=== PATIENT | male | born 1970 | race Caucasian/White ===

== ENCOUNTER 2017-04-14 08:36 | Emergency (ER) | payer BC ==
[2017-04-14 09:14] VITALS: O2SAT 93
[2017-04-14] MEDS ORDERED: Phenergan 25 MG INJ IM ONE (09:49)
[2017-04-14] MEDS ORDERED: TORAdol 30 mg Injection IM ONE (09:49)
--- NOTE | 2017-04-14 09:49 | ERPHSYRPT ---
- History of Present Illness Time Seen by Provider: 04/14/17 09:38 Source: patient Patient Subjective Stated Complaint: pt states he has had a frontal headache for the past 2 days off and on. denies any fever at home. states he is nauseated. Triage Nursing Assessment: pt pink, warm, dry. pt ambulated into ER without difficulty. pupils perrl. Physician History: The patient is a 46-year-old male who complains of a headache that began began 2 days ago after taking a dietary supplement designed to help him lose weight. The headache resolved yesterday. The headache came back again this morning. He denies any numbness or tingling. Light bothers him. It's a frontal headache. He has vomited after eating breakfast today. His past medical history is unremarkable. Timing/Duration: day(s) (2), intermittent, sudden, worse Quality: sharpness Head Pain Location: frontal Severity of Pain-Max: severe Severity of Pain-Current: severe Recent Head Trauma: no recent headache/trauma Modifying Factors: Improves With: medication Associated Symptoms: nausea/vomiting, sensitive to light Previous symptoms: no prior history Allergies/Adverse Reactions: No Known Drug Allergies Allergy (Unverified 04/14/17 09:14) Hx Tetanus, Diphtheria Vaccination/Date Given: Yes (unknown) Hx Influenza Vaccination/Date Given: Yes Hx Pneumococcal Vaccination/Date Given: No Immunizations Up to Date: Yes - Review of Systems Constitutional: No Fever, No Chills Eyes: Photophobia Ears, Nose, & Throat: No Symptoms Respiratory: No Cough, No Dyspnea Cardiac: No Chest Pain, No Edema, No Syncope Abdominal/Gastrointestinal: Vomiting Genitourinary Symptoms: No Dysuria Musculoskeletal: No Back Pain, No Neck Pain Skin: No Rash Neurological: Headache Psychological: No Symptoms Endocrine: No Symptoms Hematologic/Lymphatic: No Symptoms Immunological/Allergic: No Symptoms All Other Systems: Reviewed and Negative - Past Medical History Pertinent Past Medical History: Yes Neurological History: No Pertinent History ENT History: No Pertinent History Cardiac History: No Pertinent History Respiratory History: No Pertinent History Endocrine Medical History: No Pertinent History Musculoskeletal History: No Pertinent History GI Medical History: No Pertinent History History: Other Psycho-Social History: No Pertinent History Male Reproductive Disorders: No Pertinent History Other Medical History: kidney stones - Past Surgical History Past Surgical History: No Neuro Surgical History: No Pertinent History Cardiac: No Pertinent History Respiratory: No Pertinent History Gastrointestinal: No Pertinent History Genitourinary: No Pertinent History Musculoskeletal: No Pertinent History Male Surgical History: No Pertinent History Other Surgical History: TONSILLECTOMY - Social History Smoking Status: Never smoker Exposure to second hand smoke: No Drug Use: none Patient Lives Alone: No - Nursing Vital Signs Nursing Vital Signs: Initial Vital Signs Temperature 97.7 F Temperature Source Oral Pulse Rate 62 Respiratory Rate 18 Blood Pressure [Right Arm] 119/65 Pain Intensity 7 - Physical Exam General Appearance: moderate distress Eye Exam: PERRL/EOMI Ears, Nose, Throat Exam: normal ENT inspection, moist mucous membranes Neck Exam: normal inspection, supple, full range of motion, No meningismus Respiratory Exam: normal breath sounds, lungs clear Cardiovascular Exam: regular rate/rhythm, normal heart sounds Gastrointestinal/Abdominal Exam: soft, No tenderness, No distention Back Exam: normal inspection, normal range of motion Extremity Exam: normal inspection Mental Status Exam: alert, 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, 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 Exam: normal speech, PERRL, No facial droop Coordination/Gait Exam: normal cerebellar function Motor/Sensory Exam: no motor deficit, no sensory deficit Skin Exam: normal color, warm, dry, No rash SpO2 Interpretation: normal SpO2: 93 Oxygen Delivery: Room Air - Progress Progress: improved Counseled pt/family regarding: diagnosis - Departure Time of Disposition: 09:54 Departure Disposition: Home Clinical Impression: Migraine headache without aura Condition: Stable Critical Care Time: No Instructions: Headache Additional Instructions: I think you have a migraine headache that was triggered by the [id number] diet supplement you recently started taking. You were given a Toradol 60 mg injection and a Phenergan 50 mg injection in the ER. Please a home and rest. Discontinue the use of the dietary supplement. Follow-up tomorrow if the headache has not resolved completely.
[2017-04-14] MEDS ORDERED: TORAdol 30 mg Injection ONE (10:03)
[2017-04-14] MEDS ORDERED: Phenergan 25 MG INJ ONE (10:03)
[2017-04-14 10:38] VITALS: BP 106/66; PULSE 66
== END 2017-04-14 10:38 | disposition home or self-care (01) ==
LOC: ED 08:36
DX: G43.109 Migraine with aura, not intractable, without status migrainosus (principal)
CPT/HCPCS: 96372; 99284; J1885; J2550

== ENCOUNTER 2017-04-16 08:14 | Emergency (ER) | payer BC ==
--- NOTE | 2017-04-16 08:44 | ERPHSYRPT ---
- History of Present Illness Time Seen by Provider: 04/16/17 08:39 Source: patient, family Exam Limitations: no limitations Patient Subjective Stated Complaint: PT REPORTS HEADACHE BEGINNING WEDNESDAY- REPORTS VOMITING BEGINNING WEDNESDAY BUT NONE THIS AM-REPORTS DIZZINESS WITH MOVEMENT-PT PLACED ON LEVOQUIN WEDNESDAY FOR SINUS INFECTION-DENIES NUMBNESS OR TINGLING Triage Nursing Assessment: PT PALE WARM ET [id number] ALL QUESTIONS APPROPRIATELY-PUPILS REACTIVE-PT MOVING ALL EXTREMITIES WITH EASE-ABD SOFT ET NONTENDER TO PALP Physician History: The patient is a 46-year-old male with his mother complaining of a severe headache and vomiting for 3 days. I saw the patient 2 days ago for the same condition and gave him Phenergan and Toradol. He did not improve at that time. He later went to [facility] and was given levofloxacin for possible sinus infection. He now states he is getting worse. He is a generalized headache and has been vomiting. His vision is now blurry. The condition is originally began 4 days ago when he started taking an [id number] weight loss medicine that was produced from a vegetable rind. He took the medicine twice first day and twice secondary and developed a headache. He then came in the next day to see me for the headache. I I diagnosed him with a migraine headache that was triggered by the weight loss pill. His past medical history is significant for occasional headaches. His family has a history of DVTs. He denies any leg pain or leg swelling. Timing/Duration: day(s) Quality: sharpness Head Pain Location: global Severity of Pain-Max: severe Severity of Pain-Current: severe Recent Head Trauma: occasional headaches Modifying Factors: Improves With: exposure to light Associated Symptoms: nausea/vomiting, sensitive to light, visual disturbance Previous symptoms: no prior history Allergies/Adverse Reactions: No Known Drug Allergies Allergy (Verified 04/16/17 08:23) Home Medications: No Home Meds [facility] 04/16/17 [History] Hx Tetanus, Diphtheria Vaccination/Date Given: No Hx Influenza Vaccination/Date Given: Yes Hx Pneumococcal Vaccination/Date Given: No Immunizations Up to Date: Yes - Review of Systems Constitutional: No Fever, No Chills Eyes: Vision Changes Ears, Nose, & Throat: No Symptoms Respiratory: No Cough, No Dyspnea Cardiac: No Chest Pain, No Edema, No Syncope Abdominal/Gastrointestinal: Nausea, Vomiting, No Abdominal Pain, No Diarrhea Genitourinary Symptoms: No Dysuria Musculoskeletal: No Back Pain, No Neck Pain Skin: No Rash Neurological: Headache Psychological: No Symptoms Endocrine: No Symptoms Hematologic/Lymphatic: No Symptoms Immunological/Allergic: No Symptoms All Other Systems: Reviewed and Negative - Past Medical History Pertinent Past Medical History: No Neurological History: No Pertinent History ENT History: No Pertinent History Cardiac History: No Pertinent History Respiratory History: No Pertinent History Endocrine Medical History: No Pertinent History Musculoskeletal History: No Pertinent History GI Medical History: No Pertinent History History: Other Psycho-Social History: No Pertinent History Male Reproductive Disorders: No Pertinent History Other Medical History: kidney stones - Past Surgical History Past Surgical History: No Neuro Surgical History: No Pertinent History Cardiac: No Pertinent History Respiratory: No Pertinent History Gastrointestinal: No Pertinent History Genitourinary: No Pertinent History Musculoskeletal: No Pertinent History Male Surgical History: No Pertinent History Other Surgical History: TONSILLECTOMY - Social History Smoking Status: Never smoker Exposure to second hand smoke: No Drug Use: none Patient Lives Alone: No - Nursing Vital Signs Nursing Vital Signs: Initial Vital Signs Temperature 97.0 F Temperature Source Oral Pulse Rate 65 Respiratory Rate 16 Blood Pressure [Right Arm] 111/56 Pain Intensity 9 - Physical Exam General Appearance: moderate distress Eye Exam: PERRL/EOMI Ears, Nose, Throat Exam: normal ENT inspection, moist mucous membranes, other ( vision is 20/30 bilaterally) Neck Exam: normal inspection, supple, full range of motion, No meningismus Respiratory Exam: normal breath sounds, lungs clear Cardiovascular Exam: regular rate/rhythm, normal heart sounds Gastrointestinal/Abdominal Exam: soft, No tenderness, No distention Back Exam: normal inspection, normal range of motion Extremity Exam: normal inspection Mental 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, 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, 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: normal speech, PERRL, tongue midline, No abnormal speech, No facial droop, No facial paresthesias Coordination/Gait Exam: normal cerebellar function Motor/Sensory Exam: no motor deficit, no sensory deficit Skin Exam: normal color, warm, dry, No rash SpO2 Interpretation: normal SpO2: 97 Oxygen Delivery: Room Air Ordered Tests: Active Orders 24 hr Category Date Time Status Silo Erector STAT Care 04/16/17 09:26 Active IV Insertion STAT Care 04/16/17 08:45 Active Orthostatic Vital Signs STAT Care 04/16/17 08:55 Active Oxygen-ED Only NASAL CANNULA 2 lpm Care 04/16/17 09:26 Active Visual Acuity STAT Care 04/16/17 08:55 Active HEAD WITHOUT CONTRAST [CT] Stat Exams 04/16/17 08:47 Completed CBC W DIFF Stat Lab 04/16/17 08:55 Completed CMP Stat Lab 04/16/17 08:55 Completed D-DIMER QUANTITATION Stat Lab 04/16/17 09:00 Completed Free T4 Stat Lab 04/16/17 09:39 Completed PROTIME WITH INR Stat Lab 04/16/17 08:55 Completed TROPONIN Stat Lab 04/16/17 09:00 Completed TSH [TSH, 3RD Generation] Stat Lab 04/16/17 09:39 Completed Medication Summary Discontinued Medications Generic Name Dose Route Start Last Admin Trade Name Freq PRN Reason Stop Dose Admin Sodium Chloride 1,000 mls @ 999 mls/hr 04/16/17 08:45 04/16/17 09:09 Sodium Chloride 0.9% 1000 Ml IV 04/16/17 09:45 999 mls/hr .Q1H1M STA Administration Sodium Chloride Confirm 04/16/17 09:02 Sodium Chloride 0.9% 1000 Ml Administered 04/16/17 09:03 Dose 1,000 mls @ ud .ROUTE .STK-MED ONE Ketorolac Tromethamine 30 mg 04/16/17 08:45 04/16/17 09:10 Toradol 30 Mg Injection IV 04/16/17 08:46 30 mg STAT ONE Administration Ketorolac Tromethamine Confirm 04/16/17 09:02 Toradol 30 Mg Injection Administered 04/16/17 09:03 Dose 30 mg .ROUTE .STK-MED ONE Ondansetron HCl 4 mg 04/16/17 08:45 04/16/17 09:10 Zofran 4 Mg/2 Ml Vial IV 04/16/17 08:46 4 mg STAT ONE Administration Ondansetron HCl Confirm 04/16/17 09:02 Zofran 4 Mg/2 Ml Vial Administered 04/16/17 09:03 Dose 4 mg .ROUTE .STK-MED ONE Potassium Chloride 40 meq 04/16/17 09:40 04/16/17 10:00 Klor Con 10 Meq PO 04/16/17 09:41 40 meq STAT ONE Administration Potassium Chloride Confirm 04/16/17 09:56 Klor Con 10 Meq Administered 04/16/17 09:57 Dose 40 meq PO .STK-MED ONE Lab/Rad Data: Laboratory Result Diagrams 04/16/17 08:55 04/16/17 08:55 Laboratory Results 04/16/17 04/16/17 04/16/17 Range/Units 09:39 09:39 09:00 WBC (4.0-10.5) K/mm3 RBC (4.1-5.6) M/mm3 Hgb (12.5-18.0) gm/dl Hct (42-50) % MCV (78-100) fl MCH (26-32) pg MCHC (32-36) g/dl RDW (11.5-14.0) % Plt Count (150-450) K/mm3 MPV (6-9.5) fl Gran % (36.0-66.0) % Lymphocytes % (24.0-44.0) % Monocytes % (0.0-12.0) % Eosinophils % (0.00-5.0) % Basophils % (0.0-0.4) % Basophils # (0-0.4) INR (0.8-3.0) D-Dimer 141.6 H* (0.00-0.49) mg/L Sodium (136-145) mEq/L Potassium (3.5-5.1) mEq/L Chloride (98-107) mEq/L Carbon Dioxide (21-32) mEq/L Anion Gap (5-15) MEQ/L BUN (9-20) mg/dL Creatinine (0.55-1.30) mg/dl Estimated GFR ML/MIN Glucose (70-110) MG/DL Calcium (8.5-10.1) mg/dL Total Bilirubin (0.2-1.0) mg/dL AST (15-37) U/L ALT (12-78) U/L Alkaline Phosphatase (46-116) U/L Troponin I (0.000-0.056) ng/ml Serum Total Protein (6.4-8.2) gm/dL Albumin (3.4-5.0) g/dL Free T4 0.80 (0.76-1.46) ng/dl TSH 3rd Generation 0.166 L (0.358-3.740) mIU/L 04/16/17 04/16/17 04/16/17 Range/Units 09:00 08:55 08:55 WBC (4.0-10.5) K/mm3 RBC (4.1-5.6) M/mm3 Hgb (12.5-18.0) gm/dl Hct (42-50) % MCV (78-100) fl MCH (26-32) pg MCHC (32-36) g/dl RDW (11.5-14.0) % Plt Count (150-450) K/mm3 MPV (6-9.5) fl Gran % (36.0-66.0) % Lymphocytes % (24.0-44.0) % Monocytes % (0.0-12.0) % Eosinophils % (0.00-5.0) % Basophils % (0.0-0.4) % Basophils # (0-0.4) INR 1.29 (0.8-3.0) D-Dimer (0.00-0.49) mg/L Sodium 136 (136-145) mEq/L Potassium 3.1 L (3.5-5.1) mEq/L Chloride 101 (98-107) mEq/L Carbon Dioxide 24.1 (21-32) mEq/L Anion Gap 13.8 (5-15) MEQ/L BUN 13 (9-20) mg/dL Creatinine 0.94 (0.55-1.30) mg/dl Estimated GFR > 60 ML/MIN Glucose 95 (70-110) MG/DL Calcium 8.7 (8.5-10.1) mg/dL Total Bilirubin 0.70 (0.2-1.0) mg/dL AST 21 (15-37) U/L ALT 31 (12-78) U/L Alkaline Phosphatase 69 (46-116) U/L Troponin I < 0.017 (0.000-0.056) ng/ml Serum Total Protein 7.9 (6.4-8.2) gm/dL Albumin 3.6 (3.4-5.0) g/dL Free T4 (0.76-1.46) ng/dl TSH 3rd Generation (0.358-3.740) mIU/L 05/26/17 Range/Units 08:55 WBC 7.6 (4.0-10.5) K/mm3 RBC 4.58 (4.1-5.6) M/mm3 Hgb 13.7 (12.5-18.0) gm/dl Hct 40.9 L (42-50) % MCV 89.3 (78-100) fl MCH 29.9 (26-32) pg MCHC 33.5 (32-36) g/dl RDW 13.8 (11.5-14.0) % Plt Count 273 (150-450) K/mm3 MPV 8.9 (6-9.5) fl Gran % 59.7 (36.0-66.0) % Lymphocytes % 27.7 (24.0-44.0) % Monocytes % 10.9 (0.0-12.0) % Eosinophils % 1.2 (0.00-5.0) % Basophils % 0.5 (0.0-0.4) % Basophils # 0.04 (0-0.4) INR (0.8-3.0) D-Dimer (0.00-0.49) mg/L Sodium (136-145) mEq/L Potassium (3.5-5.1) mEq/L Chloride (98-107) mEq/L Carbon Dioxide (21-32) mEq/L Anion Gap (5-15) MEQ/L BUN (9-20) mg/dL Creatinine (0.55-1.30) mg/dl Estimated GFR ML/MIN Glucose (70-110) MG/DL Calcium (8.5-10.1) mg/dL Total Bilirubin (0.2-1.0) mg/dL AST (15-37) U/L ALT (12-78) U/L Alkaline Phosphatase (46-116) U/L Troponin I (0.000-0.056) ng/ml Serum Total Protein (6.4-8.2) gm/dL Albumin (3.4-5.0) g/dL Free T4 (0.76-1.46) ng/dl TSH 3rd Generation (0.358-3.740) mIU/L - Progress Progress: improved Blood Culture(s) Obtained: No Antibiotics given: No Counseled pt/family regarding: lab results, diagnosis, need for follow-up, rad results - Departure Time of Disposition: 11:42 Departure Disposition: Transfer (transfer to [facility] ER per Dr Green and Hiro June.) Clinical Impression: Headache, Vomiting, Hypokalemia, Craniopharyngioma Condition: Stable Critical Care Time: No Additional Instructions: You returned to the ER today for continuing headache. 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 You're being transferred to [facility] ER in [place] where you would see Dr. Green, the neurosurgeon. You were given IV fluids, Zofran 4 mg, and potassium 40 mEq in the ER.
[2017-04-16] MEDS ORDERED: TORAdol 30 mg Injection IV ONE (08:45)
[2017-04-16] MEDS ORDERED: Sodium Chloride 0.9% 1000 ML 1,000 ML IV STA (08:45)
[2017-04-16] MEDS ORDERED: Zofran 4 MG/2 ML VIAL IV ONE (08:45)
[2017-04-16] MEDS ORDERED: Sodium Chloride 0.9% 1000 ML 1,000 ML ONE (09:02)
[2017-04-16] MEDS ORDERED: Zofran 4 MG/2 ML VIAL ONE (09:02)
[2017-04-16] MEDS ORDERED: TORAdol 30 mg Injection ONE (09:02)
[2017-04-16 09:07] LABS: BASOPHIL % 0.5 % (0.0-0.4); Eosinophil % 1.2 % (0.00-5.0); Granulocytes % 59.7 % (36.0-66.0); Lymphocytes % 27.7 % (24.0-44.0); Mean Cell Volume 89.3 fl (78-100); Mean Corpuscular Hemoglobin 29.9 pg (26-32); Mean Platelet Volume 8.9 fl (6-9.5); Monocytes % 10.9 % (0.0-12.0); Platelet Count 273 K/mm3 (150-450); Red Blood Count 4.58 M/mm3 (4.1-5.6); Red Cell Distribution Width 13.8 % (11.5-14.0); White Blood Count 7.6 K/mm3 (4.0-10.5)
[2017-04-16 09:21] LABS: INR 1.29 (0.8-3.0); PROTIME 14.3 SECONDS (8.83-12.87)
[2017-04-16 09:24] LABS: ALBUMIN 3.6 g/dL (3.4-5.0); ALKALINE PHOSPHATASE 69 U/L (46-116); ANION GAP 13.8 MEQ/L (5-15); BLOOD UREA NITROGEN 13 mg/dL (9-20); CHLORIDE 101 mEq/L (98-107); Carbon Dioxide 24.1 mEq/L (21-32); Glucose 95 MG/DL (70-110); Potassium 3.1 mEq/L (3.5-5.1); SGOT/AST 21 U/L (15-37); SGPT/ALT 31 U/L (12-78); SODIUM 136 mEq/L (136-145); Total Protein 7.9 gm/dL (6.4-8.2)
--- NOTE | 2017-04-16 09:30 | XRAY ---
Indication: Headache and dizziness. Multiple contiguous axial images obtained through the head without contrast. Comparison: None There is a large sella turcica mass that is predominantly calcified. It measures 3.3 x 4.2 x 4.0 cm in greatest AP, transverse, and CC projections respectively. Findings favor craniopharyngioma. There is mass effect on the adjacent parasellar structures. No acute intracranial hemorrhage, abnormal extra-axial fluid collection, or hydrocephalus. Bony calvarium intact. Visualized paranasal sinuses and mastoid air cells are pneumatized and clear. Impression: Large calcified sellar mass favoring craniopharyngioma. CTDI 68.51
[2017-04-16] MEDS ORDERED: Klor Con 10 MEQ PO ONE ×2 (09:40→09:56)
[2017-04-16 10:01] VITALS: O2SAT 97
[2017-04-16 12:01] VITALS: BP 99/69; PULSE 57
== END 2017-04-16 12:20 | disposition short-term general hospital (02) ==
LOC: ED 08:14
DX: R51 Headache (principal); R11.2 Nausea with vomiting, unspecified; D49.6 Neoplasm of unspecified behavior of brain; R42 Dizziness and giddiness
CPT/HCPCS: 36000; 36415; 70450; 80053; 84439; 84443; 84484; 85025; 85379; 85610; 93041; 96360; 96374; 96375; 99285; J1885; J2405; A9270-GY

== ENCOUNTER 2022-08-01 17:38 | Emergency (ER) | payer BC ==
[2022-08-01 17:47] VITALS: BP 136/67
--- NOTE | 2022-08-01 17:49 | ERPHSYRPT ---
- History of Present Illness Time Seen by Provider: 08/01/22 17:48 Historian: patient Exam Limitations: no limitations Patient Subjective Stated Complaint: Pt states "I think I had a gall bladder attack. I had lower right belly pain that moved into my right lower back, broke out into sweats and vomited. The pain is mostly gone now." Triage Nursing Assessment: Pt presented alert and oriented X 3, skin wpd pt ambulates with an upright steady gait, able to speak in clear full sentences. PT resting comfortably on the bed. Physician History: This is a morbidly obese 52-year-old white male who presents to the emergency room after having an acute episode of severe right-sided abdominal pain after eating a fish sandwich from [employer] and then chicken [employer] soup. Patient states he is never had a thing like to before. However he does state that he has had some yellowish pasty stool bowel movements in the recent past. The pain radiated into his right back. Patient denies chest pain and he denies shortness of breath. Patient is concerned that he may have had an acute gallbladder attack but possibly appendicitis. At the time of this examination and assessment, the patient's symptoms have nearly completely resolved. Patient currently is refusing any antiemetics or narcotic pain medicine. Timing/Duration: today Activities at Onset: none Quality: aching Abdominal Pain Onset Location: RUQ, RLQ, flank (Right) Pain Radiation: flank (Right) Severity of Pain-Max: moderate Severity of Pain-Current: none Modifying Factors: Improves With: vomiting Associated Symptoms: diaphoresis, nausea, vomiting, No chest pain, No headache, No shortness of breath Previous symptoms: no prior history Allergies/Adverse Reactions: No Known Drug Allergies Allergy (Verified 04/16/17 08:23) Home Medications: No Home Meds [No Home Meds] 1 ea MC UD 04/16/17 [History] Cabergoline 1 tab PO DAILY 08/01/22 [History] Levothyroxine Sodium [Euthyrox] 150 mcg PO DAILY 08/01/22 [History] Testosterone Cypionate 200 mg IM WEEKLY 08/01/22 [History] Hx Tetanus, Diphtheria Vaccination/Date Given: No Hx Influenza Vaccination/Date Given: Yes Hx Pneumococcal Vaccination/Date Given: No Immunizations Up to Date: Yes Travel Risk - International Travel Have you traveled outside of the country in past 3 weeks: No - Coronavirus Screening Are you exhibiting any of the following symptoms?: No Close contact with a COVID-19 positive Pt in past 14-21 Days: No - Vaccine Status Have you recieved a Covid-19 vaccination: Yes Manager Risk: Moderna - Vaccination Dates Date of 2cond Vaccination (if applicable): 2020 - Review of Systems Constitutional: No Symptoms Eyes: No Symptoms Ears, Nose, & Throat: No Symptoms Respiratory: No Symptoms Cardiac: No Symptoms Abdominal/Gastrointestinal: Abdominal Pain, Nausea, Vomiting, No Diarrhea, No Constipation Genitourinary Symptoms: No Symptoms Musculoskeletal: No Symptoms Skin: No Symptoms Neurological: No Symptoms Psychological: No Symptoms Endocrine: No Symptoms Hematologic/Lymphatic: No Symptoms Immunological/Allergic: No Symptoms All Other Systems: Reviewed and Negative - Past Medical History Pertinent Past Medical History: Yes Neurological History: No Pertinent History ENT History: No Pertinent History Cardiac History: No Pertinent History Respiratory History: No Pertinent History Endocrine Medical History: No Pertinent History Musculoskeletal History: No Pertinent History GI Medical History: No Pertinent History History: Other Psycho-Social History: No Pertinent History Male Reproductive Disorders: No Pertinent History Other Medical History: kidney stones. pituitary tumor - Past Surgical History Past Surgical History: Yes Neuro Surgical History: No Pertinent History Cardiac: No Pertinent History Respiratory: No Pertinent History Gastrointestinal: No Pertinent History Genitourinary: No Pertinent History Musculoskeletal: No Pertinent History Male Surgical History: No Pertinent History Other Surgical History: TONSILLECTOMY - Social History Smoking Status: Never smoker Exposure to second hand smoke: No Drug Use: none Patient Lives Alone: No - Nursing Vital Signs Nursing Vital Signs: Initial Vital Signs Temperature 97.2 F 08/01/22 17:42 Pulse Rate 55 L 08/01/22 17:42 Respiratory Rate 20 08/01/22 17:42 Blood Pressure 136/67 08/01/22 17:42 O2 Sat by Pulse Oximetry 96 08/01/22 17:42 Pain Scale Pain Intensity 2 - Physical Exam General Appearance: no apparent distress, alert, anxiety, obese Eye Exam: PERRL/EOMI, eyes nml inspection Ears, Nose, Throat Exam: normal ENT inspection, moist mucous membranes Neck Exam: normal inspection, non-tender, supple, full range of motion Respiratory Exam: normal breath sounds, lungs clear, airway intact, No chest tenderness, No respiratory distress Cardiovascular Exam: regular rate/rhythm, normal heart sounds, normal peripheral pulses Gastrointestinal/Abdomen Exam: soft, normal bowel sounds, tenderness (Mild right upper quadrant to mid lower quadrant), No rebound Rectal Exam: not done Back Exam: normal inspection, normal range of motion, No CVA tenderness, No vertebral tenderness Extremity Exam: normal inspection, normal range of motion, pelvis stable Neurologic Exam: alert, 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, cooperative, latin teacher II-XII nml as tested, normal mood/affect, nml cerebellar function, nml station & gait, sensation nml Skin Exam: normal color, warm, dry Lymphatic Exam: No adenopathy SpO2 Interpretation: normal SpO2: 96 O2 Delivery: Room Air - Course Nursing assessment & vital signs reviewed: Yes EKG Interpreted by Me: RATE (52), Sinus Rhythm, NORMAL AXIS, NORMAL QRS, NORMAL ST-T, Other (Borderline prolonged DC interval. No acute ischemic changes on today's EKG.) Ordered Tests: Active Orders 24 hr Category Date Time Status IV Insertion STAT Care 08/01/22 18:08 Active ABDOMEN AND PELVIS W/0 CONTRAS [CT] Stat Exams 08/01/22 18:09 Taken AMYLASE Stat Lab 08/01/22 18:51 Completed CBC W DIFF Stat Lab 08/01/22 18:51 Completed CMP Stat Lab 08/01/22 18:51 Completed LIPASE Stat Lab 08/01/22 18:51 Completed Lactic Acid Stat Lab 08/01/22 18:15 Completed TROPONIN Q4H Lab 08/01/22 18:51 Completed TROPONIN Q4H Lab 08/01/22 22:15 Ordered TROPONIN Q4H Lab 08/02/22 02:15 Ordered UA W/RFX CULTURE Stat Lab 08/01/22 Ordered Medication Summary Discontinued Medications Generic Name Dose Route Start Last Admin Trade Name Freq PRN Reason Stop Dose Admin Sodium Chloride 1,000 mls @ 999 mls/hr 08/01/22 18:08 08/01/22 18:13 Sodium Chloride 0.9% 1000 Ml IV 08/01/22 19:08 999 mls/hr .Q1H1M STA Administration Sodium Chloride Confirm 08/01/22 18:11 Sodium Chloride 0.9% 1000 Ml Administered 08/01/22 18:12 Dose 1,000 mls @ ud .ROUTE .STK-MED ONE Lorazepam 1 mg 08/01/22 18:19 08/01/22 18:21 Lorazepam 2 Mg/1 Ml 2 Mg Vial IV 08/01/22 18:20 1 mg STAT ONE Administration Lorazepam Confirm 08/01/22 18:18 Lorazepam 2 Mg/1 Ml 2 Mg Vial Administered 08/01/22 18:19 Dose 2 mg .ROUTE .STK-MED ONE Lab/Rad Data: Laboratory Result Diagrams 08/01/22 18:51 08/01/22 18:51 Laboratory Results 08/01/22 08/01/22 08/01/22 Range/Units 18:51 18:51 18:51 WBC 8.5 (4.0-10.5) x10^3/uL RBC 4.52 (4.1-5.6) x10^6/uL Hgb 13.5 (12.5-18.0) g/dL Hct 40.6 L (42-50) % MCV 89.8 (78-100) fL MCH 29.9 (26-32) pg MCHC 33.3 (32-36) g/dL RDW 13.5 (11.5-14.0) % Plt Count 220 (150-450) x10^3/uL MPV 8.9 (7.5-11.0) fL Gran % 68.9 H (36.0-66.0) % Immature Gran % (Auto) 0.6 H (0.00-0.4) % Nucleat RBC Rel Count 0.0 (0.00-0.1) % Eos # (Auto) 0.17 (0-0.5) x10^3/uL Immature Gran # (Auto) 0.05 H (0.00-0.03) x10^3u/L Absolute Lymphs (auto) 1.65 (1.0-4.6) x10^3/uL Absolute Monos (auto) 0.71 (0.0-1.3) x10^3/uL Absolute Nucleated RBC 0.00 (0.00-0.01) x10^3u/L Lymphocytes % 19.3 L (24.0-44.0) % Monocytes % 8.3 (0.0-12.0) % Eosinophils % 2.0 (0.00-5.0) % Basophils % 0.9 (0.0-0.4) % Absolute Granulocytes 5.87 (1.4-6.9) x10^3/uL Basophils # 0.08 (0-0.4) x10^3/uL Sodium 139 (137-145) mmol/L Potassium 3.7 (3.5-5.1) mmol/L Chloride 107 (98-107) mmol/L Carbon Dioxide 27 (22-30) mmol/L Anion Gap 9.8 (5-15) MEQ/L BUN 14 (9-20) mg/dL Creatinine 1.02 (0.66-1.25) mg/dL Estimated GFR > 60.0 ML/MIN Glucose 100 (74-106) mg/dL Lactic Acid (0.4-2.0) Calcium 8.2 L (8.4-10.2) mg/dL Total Bilirubin 0.40 (0.2-1.3) mg/dL AST 20 (17-59) U/L ALT 20 (0-50) U/L Alkaline Phosphatase 63 (38-126) U/L Troponin I < 0.012 (0.000-0.034) ng/mL Serum Total Protein 5.6 L (6.3-8.2) g/dL Albumin 3.1 L (3.5-5.0) g/dL Amylase 45 (30-110) U/L Lipase 91 (23-300) U/L 08/01/22 Range/Units 18:15 WBC (4.0-10.5) x10^3/uL RBC (4.1-5.6) x10^6/uL Hgb (12.5-18.0) g/dL Hct (42-50) % MCV (78-100) fL MCH (26-32) pg MCHC (32-36) g/dL RDW (11.5-14.0) % Plt Count (150-450) x10^3/uL MPV (7.5-11.0) fL Gran % (36.0-66.0) % Immature Gran % (Auto) (0.00-0.4) % Nucleat RBC Rel Count (0.00-0.1) % Eos # (Auto) (0-0.5) x10^3/uL Immature Gran # (Auto) (0.00-0.03) x10^3u/L Absolute Lymphs (auto) (1.0-4.6) x10^3/uL Absolute Monos (auto) (0.0-1.3) x10^3/uL Absolute Nucleated RBC (0.00-0.01) x10^3u/L Lymphocytes % (24.0-44.0) % Monocytes % (0.0-12.0) % Eosinophils % (0.00-5.0) % Basophils % (0.0-0.4) % Absolute Granulocytes (1.4-6.9) x10^3/uL Basophils # (0-0.4) x10^3/uL Sodium (137-145) mmol/L Potassium (3.5-5.1) mmol/L Chloride (98-107) mmol/L Carbon Dioxide (22-30) mmol/L Anion Gap (5-15) MEQ/L BUN (9-20) mg/dL Creatinine (0.66-1.25) mg/dL Estimated GFR ML/MIN Glucose (74-106) mg/dL Lactic Acid 0.7 (0.4-2.0) Calcium (8.4-10.2) mg/dL Total Bilirubin (0.2-1.3) mg/dL AST (17-59) U/L ALT (0-50) U/L Alkaline Phosphatase (38-126) U/L Troponin I (0.000-0.034) ng/mL Serum Total Protein (6.3-8.2) g/dL Albumin (3.5-5.0) g/dL Amylase (30-110) U/L Lipase (23-300) U/L - Progress Progress: improved Progress Note: 08/01/22 19:37 CAT scan of the abdomen pelvis without contrast shows subtle bilateral scrotal hernias. No appendicitis. No findings to suggest acute cholecystitis or cholel ithiasis. No other acute findings in the abdomen or pelvis Counseled pt/family regarding: lab results, diagnosis, need for follow-up, rad results - Departure Departure Disposition: Home Clinical Impression: Right sided abdominal pain, Vomiting Condition: Stable Critical Care Time: No Referrals: MELODY MARK MD [ACTIVE STAFF] - Follow up/PCP as directed Additional Instructions: Drink plenty of clear liquids. Advance your diet slowly. Avoid fatty greasy spicy foods. Take your medication as prescribed. Call your primary care doctor on 08/01/2022 for further evaluation and management including a gallbladder ultrasound if indicated. Return to emergency department if your symptoms worsen. Prescriptions: Ondansetron ODT 4 MG [Zofran Odt 4 mg] 4 mg PO Q6H PRN PRN #10 tablet PRN Reason: Vomiting
[2022-08-01] MEDS ORDERED: Sodium Chloride 0.9% 1000 ML 1,000 ML IV STA (18:08)
[2022-08-01] MEDS ORDERED: Sodium Chloride 0.9% 1000 ML 1,000 ML ONE (18:11)
[2022-08-01] MEDS ORDERED: Ativan 2 MG/1 ML VIAL ONE (18:18)
[2022-08-01] MEDS ORDERED: Ativan 2 MG/1 ML VIAL IV ONE (18:19)
[2022-08-01 18:55] LABS: Absolute Neutrophil Ct (ANC) 5.87 x10^3/uL (1.4-6.9); Basophil (Absolute #) 0.08 x10^3/uL (0-0.4); Eosinophil (Absolute #) 0.17 x10^3/uL (0-0.5); Hematocrit 40.6 % (42-50); Hemoglobin 13.5 g/dL (12.5-18.0); Lymphocyte (Absolute #) 1.65 x10^3/uL (1.0-4.6); Lymphocytes % 19.3 % (24.0-44.0); Mean Cell Volume 89.8 fL (78-100); Mean Corpuscular Hemoglobin 29.9 pg (26-32); Mean Corpuscular Hgb Concent. 33.3 g/dL (32-36); Mean Platelet Volume 8.9 fL (7.5-11.0); Monocyte (Absolute #) 0.71 x10^3/uL (0.0-1.3); Monocytes % 8.3 % (0.0-12.0); Neutrophil % 68.9 % (36.0-66.0); Platelet Count 220 x10^3/uL (150-450); Red Blood Count 4.52 x10^6/uL (4.1-5.6); Red Cell Distribution Width 13.5 % (11.5-14.0); White Blood Count 8.5 x10^3/uL (4.0-10.5)
[2022-08-01 19:16] LABS: ALBUMIN 3.1 g/dL (3.5-5.0); ALKALINE PHOSPHATASE 63 U/L (38-126); AMYLASE 45 U/L (30-110); ANION GAP 9.8 MEQ/L (5-15); BLOOD UREA NITROGEN 14 mg/dL (9-20); CHLORIDE 107 mmol/L (98-107); Calcium 8.2 mg/dL (8.4-10.2); Carbon Dioxide 27 mmol/L (22-30); Creatinine 1 1.02 mg/dL (0.66-1.25); EST GLOMERULAR FILTRATION RATE > 60.0 ML/MIN; Glucose 100 mg/dL (74-106); LIPASE 91 U/L (23-300); Potassium 3.7 mmol/L (3.5-5.1); SGOT/AST 20 U/L (17-59); SGPT/ALT 20 U/L (0-50); SODIUM 139 mmol/L (137-145); Total Protein 5.6 g/dL (6.3-8.2)
[2022-08-01 20:06] VITALS: PULSE 61; O2SAT 97
--- NOTE | 2022-08-01 21:36 | XRAY ---
Indication: Right upper quadrant pain, nausea, and vomiting. Multiple contiguous axial images obtained through the abdomen and pelvis without contrast. Comparison: October 31, 2008 Lung bases demonstrates moderate dependent atelectasis with stable tiny left lower lobe calcified granuloma. Heart not enlarged. Noncontrasted stomach and bowel loops appear nonobstructed with normal appendix. Mild scattered colonic diverticulosis without diverticulitis. No free fluid/air. Gallbladder is mildly distended without gallstones or biliary distention. Spleen is enlarged measuring 16 cm. Remaining liver, gallbladder, pancreas, spleen, adrenal glands, kidneys, ureters, bladder, and aorta are unremarkable for noncontrast exam. Osseous structures intact with mild degenerative changes throughout the thoracolumbar spine. Again small fatty right inguinal hernia. Impression: 1. Distended gallbladder without gallstones. Sonogram may yield further information if clinically warranted. 2. Colonic diverticulosis, splenomegaly, degenerative spondylosis, and small fatty right inguinal hernia. 3. Remaining CT abdomen/pelvis without contrast exam is negative. Comment: Preliminary interpretation made by [facility]. No critical discrepancy.
== END 2022-08-01 20:07 | disposition home or self-care (01) ==
LOC: ED 17:38
DX: R10.31 Right lower quadrant pain (principal); R10.11 Right upper quadrant pain; R11.2 Nausea with vomiting, unspecified
CPT/HCPCS: 36000; 36415; 74176; 80053; 82150; 83605; 83690; 84484; 85025; 96374; 99284; J2060